=== PATIENT | female | born 1990 | race Caucasian/White ===

== ENCOUNTER 2017-05-30 09:29 | Emergency (ER) | payer OTHER ==
--- NOTE | 2017-05-30 09:50 | UC ---
Complaint Female HPI - HPI Summary HPI Summary: 26 y/o female presents to the urgent care c/o frequency and burning on urination since yesterday. She has taken Azo to alleviate symptoms. Pt reports she had a UTI about 2 weeks ago and Rx cipro for 10 days at the [facility]. She finished taking the ABX about 2 days ago and now symptoms are coming back. Pt denies fever, Flank pain, vaginal discharge, abdominal pain, Hx of STD's, SOB, chest pain, or N/V/D. Pt has not other complains - History Of Current Complaint Chief Complaint: UCGU Stated Complaint: UTI Time Seen by Provider: 05/30/17 09:39 Hx Obtained From: Patient Hx Last Menstrual Period: 05/29/17 ?: No Onset/Duration: Gradual Onset, Lasting Weeks, Still Present Timing: Lasting Days Severity Initially: Mild Severity Currently: Mild Pain Intensity: 0 Pain Scale Used: 0-10 Numeric Character: Burning Aggravating Factor(s): [place], Urination Alleviating Factor(s): Meds - Azo Associated Signs And Symptoms: Positive: Negative. Negative: Fever, Back Pain, Vaginal Bleeding/Discharge, Vaginal Discharge, Nausea, Vomiting(# Of Episodes =) , Genital Swelling, Genital Blisters - Risk Factors Ectopic Risk Factor: Negative Ovarian Torsion Risk Factor: Negative - Allergies/Home Medications Allergies/Adverse Reactions: Allergies Allergy/AdvReac Type Severity Reaction Status Date / Time Diphenhydramine Allergy Unknown Unknown Verified 05/30/17 09:31 [From Benadryl] Reaction Details Home Medications: Home Medications Phenazopyridine TAB* [Pyridium 100 mg TAB*] 100 mg PO TID 05/30/17 [History Confirmed 05/30/17] PMH/Surg Hx/FS Hx/Imm Hx Previously Healthy: Yes - Surgical History Surgical History: None - Family History Known Family History: Positive: Cardiac Disease Family History: Lung Cancer - Social History Occupation: Employed Full-time Lives: With Family Alcohol Use: Occasionally Substance Use Type: None Smoking Status (MU): Never Smoked Tobacco Review of Systems Constitutional: Negative Skin: Negative Eyes: Negative ENT: Negative Respiratory: Negative Cardiovascular: Negative Gastrointestinal: Negative Genitourinary: Dysuria, Frequency Motor: Negative Neurovascular: Negative Musculoskeletal: Negative Neurological: Negative Psychological: Negative All Other Systems Reviewed And Are Negative: Yes Physical Exam Triage Information Reviewed: Yes Appearance: Well-Appearing, No Pain Distress, Well-Nourished, Thin Vital Signs: Initial Vital Signs Temp 98.0 F 05/30/17 09:33 Pulse 57 05/30/17 09:33 Resp 14 05/30/17 09:33 BP 94/54 05/30/17 09:33 Pulse Ox 100 05/30/17 09:33 Vital Signs Reviewed: No Eye Exam: Normal Eyes: Positive: Conjunctiva Clear - PERRLA, EOMI, fundi grossly normal ENT Exam: Normal ENT: Positive: Normal ENT inspection, Hearing grossly normal, Pharynx normal, TMs normal Dental Exam: Normal Neck exam: Normal Neck: Positive: Supple, Nontender, No Lymphadenopathy Respiratory Exam: Normal Respiratory: Positive: Chest non-tender, Lungs clear, Normal breath sounds Cardiovascular Exam: Normal Cardiovascular: Positive: RRR, No Murmur, Pulses Normal Abdominal Exam: Normal Abdomen Description: Positive: Nontender, No Organomegaly, Soft. Negative: CVA Tenderness (R), CVA Tenderness (L) Bowel Sounds: Positive: Present Musculoskeletal Exam: Normal Musculoskeletal: Positive: Strength Intact, ROM Intact, No Edema Neurological Exam: Normal Psychological Exam: Normal Skin Exam: Normal Complaint Female Dx - Course Course Of Treatment: Hx obtained, PE: WNL. Pt recently finished course of ABx with cipro x 10 days and Dysuria returned. Pt taking Azo to alleviate symptoms. UA sent for culture to the lab. Pt Rx Macrobid PO x 5 days. Advised if any abnormality in the culture she will received a call from us. Advised to increase fluid intake and if fever w/ flank pain develops to go immediately to the ER. Pt understood and agreed. Left the clinic ambulating. - Differential Dx/Diagnosis Differential Diagnosis/HQI/PQRI: Cervicitis, Pelvic Inflammatory Disease, Renal Colic, Sexually Transmitted Disease, Urinary Tract Infection Provider Diagnoses: 1- recurrent UTI Discharge - Discharge Plan Condition: Stable Disposition: HOME Prescriptions: Nitrofurantoin Macrocrystals* [Macrodantin*] 100 mg PO BID #10 cap Patient Education Materials: Urinary Tract Infection in Women (ED) Referrals: [facility] [place] [facility]IAN REFERRAL [Outside] - If Needed Additional Instructions: Please take full course of antibiotic as directed to avoid recurrence or resistance. Please continue taking the Pyridium tabs and increase fluid intake or drink cramberry juice. If you develop fever or flank pain please go immediately to the ER. If symptoms do not improve or worsen please return to the urgent care or f/u with your PCP for further evaluation and treatment.
[2017-05-30 09:58] VITALS: BP 94/54
== END 2017-05-30 10:00 | disposition home or self-care (01) ==
LOC: UCEAST 09:29
DX: N39.0 Urinary tract infection, site not specified (principal)
CPT/HCPCS: 87077; 87086; 99212; G0463